=== PATIENT | female | born 1995 | race African-American/Black ===

== ENCOUNTER 2017-08-21 17:03 | Emergency (ER) | payer SELFPAY ==
[~2017-08-21] VITALS: Ht 165.1 cm; Wt 63.0 kg
[2017-08-21 17:05] VITALS: BP 146/61; PULSE 67; RESP 14; TEMP 98.6; O2SAT 99
--- NOTE | 2017-08-21 17:42 | PD ---
HPI Chief Complaint: Facial Pain or Swelling Time Seen by Provider: 17:27 Travel History International Travel<30 days: No Contact w/Intl Traveler<30days: No Traveled to known affect area: No History of Present Illness HPI Patient is a 21-year-old female who presents to emergency room with complaints of lip abrasion. Patient reports that prior to coming to the emergency room, she accidently bit the bottom her lip and caused an abrasion, patient here to see if she needs any sutures. Patient with no other complaints. Reports no pain at this time. [facility], [facility] Past Medical History Medical History: Denies Significant Hx ?: Unknown LMP: 07/20/17 Past Surgical History Surgical History: No Previous Surgery Social History Tobacco Use: No Review of Systems General / Constitutional: No: Fever Eyes: No: Visual changes HENT: No: Headaches Cardiovascular: No: Chest Pain or Discomfort Respiratory: No: Shortness of Breath Gastrointestinal: No: Abdominal Pain Genitourinary: No: Dysuria Musculoskeletal: No: Pain Skin: Positive Other (lip abrasion), No Rash Neurologic: No: Weakness Psychiatric: No: Depression Endocrine: No: Polydipsia Hematologic/Lymphatic: No: Easy Bruising Physical Exam Narrative GENERAL: Well-nourished, well-developed patient. SKIN: Focused skin assessment warm/dry. Patient with skin abrasion to lower medial lip HEAD: Normocephalic. EYES: No scleral icterus. No injection or drainage. NECK: Supple, trachea midline. No JVD or lymphadenopathy. CARDIOVASCULAR: Regular rate and rhythm without murmurs, gallops, or rubs. RESPIRATORY: Breath sounds equal bilaterally. No accessory muscle use. GASTROINTESTINAL: Abdomen soft, non-tender, nondistended. MUSCULOSKELETAL: No cyanosis, or edema. BACK: Nontender without obvious deformity. No CVA tenderness. Data Data Last Documented VS Vital Signs Date Time Temp Pulse Resp B/P (MAP) Pulse Ox O2 Delivery O2 Flow Rate FiO2 08/21/17 17:05 98.6 67 14 146/61 (89) 99 Room Air MDM Medical Decision Making Medical Screen Exam Complete: Yes Emergency Medical Condition: Yes Medical Record Reviewed: Yes Interpretation(s) Vital Signs Date Time Temp Pulse Resp B/P (MAP) Pulse Ox O2 Delivery O2 Flow Rate FiO2 08/21/17 17:05 98.6 67 14 146/61 (89) 99 Room Air Differential Diagnosis lip abrasion Narrative Course 21 year old female with superficial abrasion to lower lip. Patient does not require sutures at this time. Discussed with her that she should apply bacitracin to her lower lip. Signs and symptoms of when to return to the emergency room was reviewed patient in detail. Diagnosis Primary Impression: Abrasion of lip Qualified Codes: S00.511A - Abrasion of lip, initial encounter Patient Instructions: General Instructions Additional Instructions: Please apply bacitracin to your wound Return to ER as needed Return to ER if you develop any signs of infection Med/Other Pt SpecificInfo: Wound Care Disposition: DISCHARGE HOME Condition: Stable Seema Chavez DO Aug 21, 2017 17:42
== END 2017-08-21 18:19 | disposition home or self-care (01) ==
LOC: NEPD 17:03
DX: S00.511A Abrasion of lip, initial encounter (principal); W22.8XXA Striking against or struck by other objects, initial encounter
CPT/HCPCS: 99282